=== PATIENT | female | born 1980 | race Caucasian/White ===

== ENCOUNTER 2023-06-20 14:40 | Emergency (ER) | payer SELFPAY ==
[2023-06-20 14:45] VITALS: BP 120/78; PULSE 75; RESP 17; TEMP 36.6; O2SAT 100; BMI 27.1
--- NOTE | 2023-06-20 15:02 | ED_ITS ---
HPI - Extremity Problem General: Chief complaint: Extremity Problem,Nontraumatic Stated complaint: swollen left arm Time Seen by Provider: 06/20/23 14:47 Source: patient and family (mother) Mode of arrival: ambulatory Limitations: no limitations History of Present Illness: Patient is a nice 42-year-old female presents to ED today along with her mother for evaluation of swelling to the left arm that began several days ago following a bite/sting. Patient states she was out working in the garden when she initially felt a sting to her right arm. She felt like area initially swelled up but then subsided. She states an hour or so later she felt another sting to her left arm and states since then the arm has swollen significantly. Did not visualize insect either time. She states incident occurred approximately 2 to 3 days ago. She was seen at a walk-in clinic and prescribed a prednisone taper as well as clindamycin. She does not feel like swelling has improved. She has not noticed any redness or warmth to the extremity. No decreased range of motion. No numbness, tingling, loss of sensation. Has not been using any antihistamines at home. MD Complaint: extremity pain and extremity swelling Onset (ago): day(s) Pain Consistency: constant Location: left and upper extremity Radiation: none Relieving factors: nothing Exacerbating factors: nothing Associated symptoms: Reports no associated symptoms; Deny chest pain or fever(s) Context: other (insect bite/sting) Review of Systems Const: Denies: fever(s), chills, body aches, fatigue or malaise Card: Denies: chest pain Resp: Denies: dyspnea Musc: Reports: extremity pain and extremity swelling; Denies: joint redness or limited range of motion Neuro: Denies: numbness in extremities or sensory changes Physical Exam Const: COMMON NORMALS: no acute distress, average body habitus, patient oriented x3, no limitations, healthy appearing, alert and well nourished Resp: COMMON NORMALS: normal respiratory effort Cardio: COMMON NORMALS: regular rate and regular rhythm RATE: regular rate RHYTHM: regular rhythm Extremity: COMMON NORMALS: full ROM and capillary refill normal GENERAL: Yes normal exam except as noted LEFT UPPER EXTREMITY: Yes upper arm, Yes elbow joint, Yes lower arm, Yes wrist and Yes hand & digits OTHER: patient has non-pitting edema affecting her mid upper arm distally into wrist/dorsal hand; she can wiggle digits easily and has normal wrist and elbow movements; does feel like arm is sore/tight secondary to edema; easily palpable radial pulse with normal cap refill and sensation; there is no erythema/warmth to extremity; symptoms consistent with a localized reaction Neuro: COMMON NORMALS: patient oriented x3, moves all extremities, no focal motor deficits and no sensory deficits noted SENSORIUM/ORIENTATION: Yes alert Course Vital Signs: Vital signs: Vital Signs Temperature 97.8 F 06/20/23 14:45 Pulse Rate 75 06/20/23 14:45 Respiratory Rate 17 06/20/23 14:45 Blood Pressure 120/78 06/20/23 14:45 Pulse Oximetry 100 06/20/23 14:45 Oxygen Delivery Me thod Room Air 06/20/23 14:45 MDM - Extremity (Nontraumatic) Medical Decision Making There does not appear to be any active infection/deep space infection, vascular compromise, DVT, compartment syndrome, or other emergent etiology. History and physical exam consistent with localized reaction. She will be given IM steroids/diphenhydramine here. Recommend continue antihistamines at home as well as ice and elevation. Ultimately it will take time for edema to subside. Return to ED precautions given. Medical Records I reviewed the patient's medical records. No radiology studies performed this visit Discharge Plan Discharge Patient Disposition: Home Clinical Impression: Allergic reaction to insect sting Qualifiers: Encounter type: initial encounter Injury intent: accidental or unintentional Qualified Code(s): T63.481A - Toxic effect of venom of other arthropod, accidental (unintentional), initial encounter Condition: Stable Discharge Orders: Discharge ED (Routine); Ordered 06/20/23 Ordered By: Omaira Sepulveda Activity Restrictions/Additional Instructions: As we discussed I would like you to ice and elevate the extremity is much as possible. You may take Benadryl 50 Mg every 4-6 hours as well. You may continue your current medications that you are prescribed to you at the walk-in clinic. Return to the emergency department for worsening pain or swelling, severe pain with movement of your wrist or fingers, any color/temperature changes to your arm such as redness/warmth or coolness/pallor, or any numbness or tingling to your extremity. 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
[2023-06-20] MEDS: methylPREDNISolone sod succ 125 mg/2 mL INJ 80 MG IM (15:12)
[2023-06-20] MEDS: diphenhydrAMINE 50 mg/mL SDV 1mL IM (15:12)
== END 2023-06-20 15:24 | disposition home or self-care (01) ==
PROVIDERS: Emergency Provider Physician Assistant
DX: T63.481A Toxic effect of venom of other arthropod, accidental (unintentional), initial encounter (principal)
CPT/HCPCS: 96372; 99284; J1200; J2930

== ENCOUNTER 2024-01-28 14:00 | Emergency (ER) | payer MEDICAID, SELFPAY ==
--- NOTE | 2024-01-28 14:03 | ECG_ITS ---
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 Measurements Intervals [place] Rate: 77 P: 62 MS: 150 QRS: 58 QRSD: 73 T: 65 QT: 379 QTc: 431 Interpretive Statements SINUS RHYTHM POSSIBLE LEFT ATRIAL ENLARGEMENT [-0.1mV P-WAVE IN V1/V2] No previous ECG available for comparison Electronically Signed On 01-28-2024 23:04:02 CDT by Jessica Garcia M.D. [email or web address]
[2024-01-28 14:11] VITALS: BP 114/66; PULSE 79; RESP 16; TEMP 36.7; O2SAT 98
--- NOTE | 2024-01-28 14:29 | XR_ITS ---
WS: [id number] Exam: XR chest 1V portable [id number] Date/Time of Exam: 01/28/2024 2:44 PM Reason For Exam: Chest pain No priors. Lungs are fully expanded and clear. Normal cardiomediastinal silhouette and regional bony elements. XR/XR chest 1V portable [id number] IMPRESSION: 1. Normal chest.
[2024-01-28 14:59] VITALS: BP 102/69; PULSE 70; RESP 18; O2SAT 100
[2024-01-28 15:14] VITALS: BP 104/72; PULSE 70; RESP 17; O2SAT 99
[2024-01-28 15:15] VITALS: BP 99/69; PULSE 69; RESP 16; O2SAT 99
[2024-01-28 15:17] LABS: Basophils # 0.1 10^3/uL (0.0-0.1); Basophils % 0.8 %; Eosinophils # 0.1 10^3/uL (0.0-0.8); Eosinophils % 1.1 %; Hematocrit 42.2 % (36-47); Lymphocytes # 2.6 10^3/uL (0.8-4.8); Lymphocytes % 35.3 %; Mean Corpuscular HGB Conc 33.6 g/dL (30-55); Mean Corpuscular Hemoglobin 31.9 pg (27-33); Mean Corpuscular Volume 94.8 fl (85-98); Mean Platelet Volume 9.1 fL (7.4-10.4); Monocytes # 0.4 10^3/uL (0.2-0.9); Monocytes % 5.5 %; Neutrophils # 4.24 10^3/uL (1.8-7.7); Nucleated Red Blood Cells % 0 %; Platelet Count 368 10^3/cmm (157-399); Red Blood Count 4.45 10^6/uL (3.85-5.65); Red Cell Distribution Width 12.8 % (12.1-15.1); White Blood Count 7.43 10^3/uL (3.29-11.43)
--- NOTE | 2024-01-28 15:18 | W.ED.CHESTPA ---
HPI - Chest Pain General: Chief Complaint: Chest Pain Stated Complaint: chest, arm, neck pain, d,n Time Seen by Provider: 01/28/24 14:25 History of Present Illness: 43-year-old female who presents emergency room with chest pain. She has a history of A-fib. She is not on any blood thinners. She has chronic chest pain issues but does not have heart disease. She does have nitro at home that her doctor gave her for when she does have chest pain. She took some which did not help. She also reports that she ran a [employer] yesterday. The pain in her chest and neck is reproducible with palpation. No cough. No fevers. No nausea or vomiting. No abdominal pain. Pain is sharp. Related Data Allergies Allergy/AdvReac Type Severity Reaction Status Date / Time No Known Allergies Allergy Verified 01/28/24 14:14 Review of Systems Narrative: Constitutional symptoms: Negative except as documented in HPI. Skin symptoms: Negative except as documented in HPI. Eye symptoms: Negative except as documented in HPI. ENMT symptoms: Negative except as documented in HPI. Respiratory symptoms: Negative except as documented in HPI. Cardiovascular symptoms: Negative except as documented in HPI. Gastrointestinal symptoms: Negative except as documented in HPI. Genitourinary symptoms: Negative except as documented in HPI. Musculoskeletal symptoms: Negative except as documented in HPI. Neurologic symptoms: Negative except as documented in HPI. Psychiatric symptoms: Negative except as documented in HPI. Endocrine symptoms: Negative except as documented in HPI. Physical Exam Narrative: EXAM NARRATIVE: General: Alert, no acute distress. Skin: Warm, dry. Head: Normocephalic, atraumatic. Neck: Supple, trachea midline. Eye: Extraocular movements are intact. Ears, nose, mouth and throat: mucosa moist. Cardiovascular: Regular, Normal peripheral perfusion. Tenderness to palpation over the affected area. Respiratory: Lungs are clear to auscultation, respirations are non-labored, breath sounds are equal, Symmetrical chest wall expansion. Gastrointestinal: Soft, Nontender, Non distended Musculoskeletal: Normal ROM, no deformity. Neurological: Alert and oriented, No focal neurological deficit observed. Psychiatric: Cooperative, appropriate mood & affect. Course Vital Signs: Vital signs: Vital Signs Temperature 98.0 F 01/28/24 14:11 Pulse Rate 69 01/28/24 15:15 Respiratory Rate 16 01/28/24 15:15 Blood Pressure 99/69 10/24/24 15:15 Pulse Oximetry 99 01/28/24 15:15 Oxygen Delivery Me thod Room Air 01/28/24 15:15 MDM - Chest Pain Medical Decision Making Differential diagnosis for patient with chest pain includes but is not limited to and based on the above HPI, review of systems and physical exam: Pneumonia. unstable angina. angina. Acute coronary syndrome / DC. Pulmonary embolism. Costochondritis / musculoskeletal. Pleurisy. Pericarditis. Esophageal spasm. Pancreatis. Cholecystitis. Orders placed to evaluate differential diagnosis based on the above differential, HPI and physical exam EKG: Time 1403. Rate 77. Normal sinus rhythm, No ST-T changes, no ectopy, normal MA & QRS intervals, This was reviewed and interpreted by myself the ER physician at 1407 Chest x-ray: No acute process. No infiltrate. No pneumothorax. This was reviewed and interpreted by myself the ER physician. Lab Review: Laboratory results were reviewed and interpreted by myself the emergency room physician. No leukocytosis. No anemia. Troponin is negative. No renal failure. I reviewed the patient's medical record. Reexamination: Patient remained stable. No increased work of breathing. No altered mental status. No focal motor deficits. Assessment and plan: Musculoskeletal chest pain - Discharged home - Discussed plan with patient. Answered any questions. - Evaluation and treatment of this problem were appropriate in the emergency setting. Lab Data 01/28/24 15:05 01/28/24 15:05 Radiology Impressions Chest X-Ray 01/28/24 14:29 IMPRESSION: 1. Normal chest. Laboratory Results WBC 7.43 10^3/uL (3.29-11.43) 01/28/24 15:05 RBC 4.45 10^6/uL (3.85-5.65) 01/28/24 15:05 Hgb 14.20 g/dL (11.27-16.99) 01/28/24 15:05 Hct 42.2 % (36-47) 01/28/24 15:05 MCV 94.8 fl (85-98) 01/28/24 15:05 MCH 31.9 pg (27-33) 01/28/24 15:05 MCHC 33.6 g/dL (30-55) 01/28/24 15:05 RDW 12.8 % (12.1-15.1) 01/28/24 15:05 Plt Count 368 10^3/cmm (157-399) 01/28/24 15:05 MPV 9.1 fL (7.4-10.4) 01/28/24 15:05 Neut % (Auto) 57.0 % 01/28/24 15:05 Lymph % (Auto) 35.3 % 01/28/24 15:05 [place] % (Auto) 5.5 % 01/28/24 15:05 Eos % (Auto) 1.1 % 01/28/24 15:05 Baso % (Auto) 0.8 % 01/28/24 15:05 Neut # (Auto) 4.24 10^3/uL (1.8-7.7) 01/28/24 15:05 Lymph # (Auto) 2.6 10^3/uL (0.8-4.8) 01/28/24 15:05 [place] # (Auto) 0.4 10^3/uL (0.2-0.9) 01/28/24 15:05 Eos # (Auto) 0.1 10^3/uL (0.0-0.8) 01/28/24 15:05 Baso # (Auto) 0.1 10^3/uL (0.0-0.1) 01/28/24 15:05 Nucleated RBC % (auto) 0 % 01/28/24 15:05 Nucleated RBCs # 0.0 /100WBC 01/28/24 15:05 D-Dimer 0.49 ug/mLFEU (0-0.59) 01/28/24 15:05 Sodium 138 mmol/L (136-145) 01/28/24 15:05 Potassium 4.0 mmol/L (3.5-5.1) 01/28/24 15:05 Chloride 102 mmol/L (98-107) 01/28/24 15:05 Carbon Dioxide 24 mmol/L (22-29) 01/28/24 15:05 Anion Gap 16.0 (5-19) 01/28/24 15:05 BUN 11 mg/dL (6-20) 01/28/24 15:05 Creatinine 0.7 mg/dL (0.5-0.9) 01/28/24 15:05 GFR Calculation 90.5 mL/min (90-130) 01/28/24 15:05 Glucose 87 mg/dL (65-115) 01/28/24 15:05 Calculated Osmolality 285 mOsm/kg (285-295) 01/28/24 15:05 Calcium 8.7 mg/dL (8.5-10.5) 01/28/24 15:05 Total Bilirubin 0.4 mg/dL (0.15-1.2) 01/28/24 15:05 AST 15 U/L (0-32) 01/28/24 15:05 ALT 12 U/L (0-33) 01/28/24 15:05 Alkaline Phosphatase 71 U/L (35-105) 01/28/24 15:05 Troponin T Baseline < 6 ng/L (0-10) 01/28/24 15:05 Total Protein 6.7 g/dL (6.6-8.7) 01/28/24 15:05 Albumin 4.4 g/dL (3.5-5.2) 01/28/24 15:05 Globulin 2.3 g/dL (1.3-4.6) 01/28/24 15:05 All radiology interpretation(s) finalized by discharge Discharge Plan Discharge Patient Disposition: Home Clinical Impression: Musculoskeletal chest pain Condition: Stable Discharge Orders: Discharge ED (Routine); Ordered 01/28/24 Ordered By: Xiomara Nixon Discharge Diet: Usual diet Discharge Activity: Increase activity as tolerated Patient Instructions: Noncardiac Chest Pain (ED) Activity Restrictions/Additional Instructions: Thank you for choosing [facility] for your healthcare needs today. Please realize this is an emergency room and that we are providing you with a medical screening exam and this may not be complete and all inclusive of all the testing and or work up that you may need to determine your ailment or severity of your illness. You have been screened and evaluated and felt safe for discharge. Health conditions do change or evolve sometimes and as such it is important that you follow up with your Primary Doctor to be re checked, 3-5 days is a general good time frame for follow up. 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
[2024-01-28 15:31] LABS: D Dimer 0.49 ug/mLFEU (0-0.59)
[2024-01-28 15:35] LABS: Troponin(5th) Baseline < 6 ng/L (0-10)
[2024-01-28 15:48] LABS: Alanine Aminotransferase 12 U/L (0-33); Albumin Level 4.4 g/dL (3.5-5.2); Alkaline Phosphatase 71 U/L (35-105); Aspartate Amino Transferase 15 U/L (0-32); Blood Urea Nitrogen 11 mg/dL (6-20); Calcium 8.7 mg/dL (8.5-10.5); Carbon Dioxide 24 mmol/L (22-29); Chloride 102 mmol/L (98-107); Creatinine Clr Calc Pharmacy 107.5866; Globulin 2.3 g/dL (1.3-4.6); Glomerular Filtration Rate 90.5 mL/min (90-130); Glucose 87 mg/dL (65-115); Osmolality Calculated 285 mOsm/kg (285-295); Sodium 138 mmol/L (136-145); Total Bilirubin 0.4 mg/dL (0.15-1.2); Total Protein 6.7 g/dL (6.6-8.7)
[2024-01-28 16:01] VITALS: BP 106/69; PULSE 75; O2SAT 100
== END 2024-01-28 16:02 | disposition home or self-care (01) ==
PROVIDERS: Emergency Provider Emergency Medicine
DX: R07.89 Other chest pain (principal); I48.91 Unspecified atrial fibrillation
CPT/HCPCS: 36415; 71045; 80053; 84484; 85025; 85378; 93005; 99285